=== PATIENT | male | born 1985 | race Caucasian/White ===

== ENCOUNTER 2017-11-07 19:45 | Emergency (ER) | payer MEDICAID ==
[~2017-11-07] VITALS: Ht 177.8 cm; Wt 110.0 kg
[2017-11-07 19:51] VITALS: BP 147/94
[2017-11-07] MEDS ORDERED: KETOROLAC 30 MG/1 ML ONE (20:15)
[2017-11-07] MEDS ORDERED: HYDROcodone/APAP 5/325 TABLET ONE (20:15)
[2017-11-07] MEDS ORDERED: ONDANSETRON ODT 4 MG ONE (20:15)
[2017-11-07] MEDS ORDERED: CYCLOBENZAPRINE 10 MG TABLET ONE (20:16)
[2017-11-07] MEDS ORDERED: ONDANSETRON ODT 4 MG PO ONE (20:30)
[2017-11-07] MEDS ORDERED: HYDROcodone/APAP 5/325 TABLET PO ONE (20:30)
[2017-11-07] MEDS ORDERED: CYCLOBENZAPRINE 10 MG TABLET PO ONE (20:30)
[2017-11-07] MEDS ORDERED: KETOROLAC 30 MG/1 ML IM ONE (20:30)
== END 2017-11-07 21:09 | disposition home or self-care (01) ==
LOC: ED 21:03
DX: M46.1 Sacroiliitis, not elsewhere classified (principal); I10 Essential (primary) hypertension
CPT/HCPCS: 72202; 96372; 99284; J1885; Q0162

== ENCOUNTER 2020-02-03 15:12 | Emergency (ER) | payer SELFPAY ==
--- NOTE | 2020-02-03 15:32 | NUR ---
CALLED FOR PT. PT NOT IN LOBBY
--- NOTE | 2020-02-03 16:10 | NUR ---
CALLED FOR PT AGAIN. NOT IN LOBBY
--- NOTE | 2020-02-03 16:23 | NUR ---
CALLED FOR PT IN LOBBY. PT NOT IN LOBBY
== END 2020-02-03 16:25 | disposition left against medical advice (07) ==
LOC: ED 15:30
DX: K08.89 Other specified disorders of teeth and supporting structures (principal); Z53.21 Procedure and treatment not carried out due to patient leaving prior to being seen by health care provider